=== PATIENT | male | born 1950 | race Caucasian/White ===

== ENCOUNTER 2024-10-12 09:59 | Day surgery (SDC) | payer MEDICARE, OTHER, SELFPAY ==
[2024-10-12] VITALS (8 sets, daily range): BP systolic 125–163; BP diastolic 62–91; BMI 25.7
[2024-10-12 10:30] LABS: Hematocrit 40.7 % (39.0-52.0); Hemoglobin 13.2 g/dL (13.0-18.0); Mean Corp Hgb Conc. 32.4 g/dL (33.0-37.0); Mean Corpuscular Volume 86.4 fL (80.0-94.0); Mean Platelet Volume 10.2 fL (7.4-10.4); Platelet Count 273 10^3/uL (130-400); Red Blood Cell Count 4.71 10^6/uL (4.70-6.10); Red Cell Dist. Width 13.9 % (11.5-14.5); White Blood Cell Count 15.8 10^3/uL (4.8-10.8)
[2024-10-12 10:46] LABS: Blood Urea Nitrogen 21 mg/dl (9-20); Calcium 9.1 mg/dl (8.4-10.2); Carbon Dioxide 31 mmol/L (22-30); Chloride 103 mmol/L (98-107); Glucose 88 mg/dl (70-99); Potassium 3.6 mmol/L (3.5-5.1); Sodium 142 mmol/L (135-145); eGFR > 60.00
[2024-10-12 10:47] LABS: APTT 34.7 Sec (23.4-35.0); INR 0.97; PT 13.4 Sec (11.4-14.6)
[2024-10-12] MEDS: PERIDEX 0.12% ORAL RINSE 15 ML PO (11:20)
[2024-10-12] MEDS: BACTROBAN NASAL 1 GRAM NASAL (11:20)
--- NOTE | 2024-10-12 13:31 | W.SUR.PREOP ---
Pre-Operative Surgical Note
-
I have examined this patient prior to the performance of the scheduled procedure.
The patient's condition is unchanged from the time of the current History and
Physical and the patient is able to undergo the scheduled procedure.
Risks/benefits/alternatives of left temporal artery biopsy discussed. Discussed our role as vascular surgeons. He understands all and wishes to proceed.
--- NOTE | 2024-10-12 14:20 | W.SUR.POST ---
Surgical Immediate Post Op
Note
Pre Op Diagnosis: Giant cell arteritis
Post Op Diagnosis: Giant cell arteritis
Procedure Performed: Left temporal artery biopsy
Primary Surgeon: Tong
Assist: Montaan CALLES
Anesthesia: Local and sedation
Estimated Blood Loss: 1 cc
Fluids: See anesthesia flowsheet
Drains/Shunts: None
Specimens/Cultures: Left temporal artery
Doppler/Duplex/Angio (Y/N):
Complications: None
Operative Findings: Successful biopsy
--- NOTE | 2024-10-12 17:35 | OR.RPT ---
Operative Report
Operative Report
PROCEDURE DATE: 10/12/2024
Preoperative diagnosis: Temporal arteritis
Postoperative diagnosis: Same
Procedure: Left temporal artery biopsy
Surgeon: Tong
Jailkeeper: NANCY Boyle, required for all aspects of procedure including assistance with traction/countertraction and assistance with closure.
Complications: None
Anesthesia: Local, sedation
Indications for procedure:
Patient with history of prior right temporal artery biopsy remotely prior to my meeting him. Now with recent symptoms of left eye and facial/jaw pain. Referred by [facility] machine operator for temporal artery biopsy. Symptoms were relieved immediately after
starting steroids. Risk/benefit/alternatives of left temporal artery biopsy were fully discussed. Patient understood and wished to proceed.
Description of procedure:
Patient was identified brought to the operating room placed on the table in supine position. After the adequate administration of anesthesia and perioperative antibiotics he was prepped and draped in the standard surgical fashion. A standard
preoperative timeout was undertaken and everybody was in agreement the plan. A longitudinal incision was made in the left scalp just anterior and superior to the superiormost aspect of the pinna of the right ear (overlying the palpable pulsation of
the artery) after infiltration of the skin and subcutaneous tissue with 1% lidocaine. This was carried down through the subcutaneous layer and the fascia layer with electrocautery. The superficial temporal artery was identified. It was mobilized
using sharp dissection. It was then ligated proximally and distally. I then transected the artery. This was then sent for specimen.
The incision site was then irrigated. Hemostasis was achieved and confirmed. We then closed in layers using 3-0 Vicryl deep dermal layer followed by 4-0 Monocryl subcuticular running layer. Dermabond was then applied. Patient tolerated procedure
well.
== END 2024-10-12 15:38 | disposition home or self-care (01) ==
LOC: CATH 09:59
PROVIDERS: ATTENDING PHYSICIAN Surgery Vascular Surgery; FAMILY PHYSICIAN Internal Medicine
DX: R51.9 Headache, unspecified (principal); R68.84 Jaw pain; I44.4 Left anterior fascicular block; Z87.891 Personal history of nicotine dependence
CPT/HCPCS: 37609; 88305; 80048; 85027; 85610; 85730; 86850; 86900; 86901; 88313; 93005